=== PATIENT | male | born 1950 | race Asian ===

== ENCOUNTER 2020-12-13 06:07 | Day surgery (SDC) | payer OTHER ==
[~2020-12-13] VITALS: Ht 160 cm; Wt 56.7 kg
[~2020-12-13 06:07] MED LIST: GOUT; METF500T PO
[2020-12-13] MEDS ORDERED: fentaNYL citrate 0.05 MG/ML VIAL ONE (07:51)
[2020-12-13] MEDS ORDERED: MIDAZOLAM 2 MG/2 ML VIAL ONE (07:51)
[2020-12-13] MEDS ORDERED: LIDOCAINE 2% 100 MG/5 ML UJET TP ONE (07:52)
[2020-12-13] MEDS ORDERED: MIDAZOLAM 5 MG/5 ML VIAL ONE (07:52)
[2020-12-13] MEDS ORDERED: MIDAZOLAM 2 MG/2 ML VIAL IVP ONE (10:40)
[2020-12-13] MEDS ORDERED: fentaNYL citrate 0.05 MG/ML VIAL IVP ONE (10:40)
== END 2020-12-13 10:20 | disposition home or self-care (01) ==
LOC: MOR 06:07 → MFCC 06:16 → MOR 10:20
PROVIDERS: ATTEND Internal Medicine Gastroenterology
DX: R19.7 Diarrhea, unspecified (principal); R10.13 Epigastric pain; K57.30 Diverticulosis of large intestine without perforation or abscess without bleeding
CPT/HCPCS: 36415; 43239; 45378; 86677; J2250; J3010